=== PATIENT | male | born 1970 | race Caucasian/White ===

== ENCOUNTER 2017-03-01 12:58 | Emergency (ER) | payer OTHER ==
[~2017-03-01] VITALS: Ht 167.6 cm; Wt 75.0 kg
[~2017-03-01 12:58] MED LIST: [UNRECOGNIZED DRUG - REMARK]
[2017-03-01 13:05] VITALS: Ht 167.6 cm; Wt 75.0 kg
--- NOTE | 2017-03-01 15:18 | ERD ---
ER Documentation Chief Complaint Date/Time DATE: 03/01/17 TIME: 15:15 Chief Complaint BIB RA FOR EVAL OF ETOH. PT AMBULATORY. PT A&OX4. HPI This 47-year-old male was brought in when he was found sleeping outside and admitted to drinking alcohol. Is alert and oriented on arrival and admits to drinking beer today. Said that he did drink a large amount but has not had a drink for several hours. Denies any trauma but does state that he is hungry and thirsty. Denies any other medical problems and has no pain currently. ROS All systems reviewed and are negative except as per history of present illness. Medications Home Meds Discontinued Reported Medications [Abd Meds] No Conflict Check 03/19/11 Allergies Allergies: Coded Allergies: No Known Drug Allergies (Verified Allergy, Mild, 04/10/14) PMhx/Soc Hx Miscellaneous Medical Probl: Yes (ETOH) Hx Alcohol Use: Yes Hx Substance Use: No Hx Tobacco Use: No Smoking Status: Never smoker Physical Exam Vitals Vital Signs Date Time Temp Pulse Resp B/P Pulse Ox O2 Delivery O2 Flow Rate FiO2 03/01/17 13:05 97.8 100 18 135/70 99 Physical Exam Const: [] No distress Head: Atraumatic Eyes: Normal Conjunctiva ENT: Normal External Ears, Nose and Mouth. Neck: Full range of motion..~ No meningismus. Resp: Clear to auscultation bilaterally Cardio: Regular rate and rhythm, no murmurs Abd: Soft, non tender, non distended. Normal bowel sounds Skin: No petechiae or rashes Back: No midline or flank tenderness Ext: No cyanosis, or edema Neur: Awake and alert and oriented 3, appears somnolent, no slurred speech, cranial nerves II through XII intact, no cerebellar deficits, normal gait Psych: Normal Mood and Affect Procedures/MDM 47-year-old male with alcohol intoxication. It spent talking him at bedside abuse. He does state that he thinks he drinks too much. There are no signs of trauma the patient is alert oriented denies any trauma or pain. He was washing the emergency room for over 2 hours. He remained awake and did eat a sandwich and drank water. Wanted to make sure that he would be okay and thus encouraged him to wait for an observation. This point he is still clinically sober and states that he went to sleep in public because he was tired and had been drinking. Going to discharge him with primary care follow-up and instructions to return the emergency room if he has any concerning symptoms per Departure Diagnosis: Primary Impression: Alcoholic intoxication Condition: Stable Patient Instructions: Alcohol Intoxication, Alcohol Abuse Referrals: KIMMY FRANK (PCP) Additional Instructions: Call your primary care doctor TOMORROW for an appointment during the next 2-3 days.See the doctor sooner or return here if your condition worsens before your appointment time. DEEPALI FAGN DO March 01, 2017 15:18
[2017-03-01 16:38] VITALS: BP 103/52; PULSE 90; RESP 18; TEMP 98.6
== END 2017-03-01 16:40 | disposition home or self-care (01) ==
LOC: E/R 12:58
DX: F10.120 Alcohol abuse with intoxication, uncomplicated (principal); R40.2252 Coma scale, best verbal response, oriented, at arrival to emergency department; R40.2142 Coma scale, eyes open, spontaneous, at arrival to emergency department; R40.2362 Coma scale, best motor response, obeys commands, at arrival to emergency department
CPT/HCPCS: 99282

== ENCOUNTER 2018-06-25 09:37 | Emergency (ER) | END 2018-06-25 13:26 | disposition home or self-care (01) ==

== ENCOUNTER 2019-05-01 07:49 | Day surgery (SDC) | payer OTHER ==
[~2019-05-01] VITALS: Ht 167.6 cm; Wt 75.1 kg
[2019-05-01] VITALS (14 sets, daily range): BP systolic 102–128; BP diastolic 47–95; PULSE 50–78; RESP 12–26; Ht 167.6 cm; Wt 75.1 kg
[~2019-05-01 07:49] MED LIST changes: +ACET325T33 PO; +IBUP-1561 PO; +PROPOFOL 200 MG INJ ONE; -[UNRECOGNIZED DRUG - REMARK]
[2019-05-01] MEDS ORDERED: CEFAZOLIN 2 GM/50 ML (PMX) 50 ML IVPB SCH (10:00)
[2019-05-01] MEDS ORDERED: SOD CHLORIDE 0.9% 1,000 ML IV SCH (10:00)
--- NOTE | 2019-05-01 10:59 | PREAC ---
Date/Time of Note Date/Time of Note DATE: 05/01/19 TIME: 10:56 Anesthesia Eval and Record Evaluation Time Pre-Procedure Interview DATE: 05/01/19 TIME: 10:56 Age 49 Sex male NPO: 8 hrs Preoperative diagnosis right inguinal hernia Planned procedure open right inguinal hernia repair Past Medical History Past Medical History: Includes GI: GERD Surgery & Anesthesia Issues No known issue Meds Anticoagulation: No Beta Onesimo within 24 hr: No Reason Beta Onesimo not given: Pt. not on B-Onesimo Discontinued Scripts Acetaminophen* (Tylenol*) 325 Mg Tablet, 1 TAB PO Q6 PRN for PAIN AND OR ELEVATED TEMP, #20 TAB Prov:GERALDINE GUERRA PA-C 06/25/18 Ibuprofen* (Motrin*) 400 Mg Tab, 400 MG PO Q6H PRN for PAIN AND OR ELEVATED TEMP, #30 TAB Prov:GERALDINE GUERRA PA-C 06/25/18 Current Medications Cefazolin Sodium/ Dextrose 50 ml @ 100 mls/hr ONCE IVPB ; Start 05/01/19 at 10:00; Stop 05/01/19 at 14:00 Sodium Chloride 1,000 ml @ 75 mls/hr [id number] IV Last administered on 05/01/19at 09:19; Admin Dose 75 MLS/HR; Start 05/01/19 at 10:00 Meds reviewed: Yes Allergies Coded Allergies: No Known Drug Allergies (Verified Allergy, Mild, 06/25/18) Allergies Reviewed: Yes Labs/Studies Labs Reviewed: Reviewed by anesthesiologist Result Diagram: 05/01/19 0851 05/01/19 0851 Laboratory Tests 05/01/19 08:51 test: N/A Pre-procedure Exam Last vitals Vital Signs Date Temp Pulse Resp B/P (MAP) Pulse Ox O2 O2 Flow FiO2 Time Delivery Rate 05/01/19 99.2 78 16 111/76 97 Room Air 09:08 (88) Airway: Adequate mouth opening, Adequate thyromental dist Mallampati: Mallampati II Teeth: Normal Lung: Normal Heart: Normal ASA Physical Status ASA physical status: 1 Emergency: None Planned Anesthetic General/MAC: ETT Nerve block: TAP (right) Planned Pain Management Single shot nerve block, Parenteral pain med Pre-operative Attestations Prior to commencing anesthesia and surgery, the patient was re-evaluated, there was verification of: *The patient's identity *The results of appropriate recent lab work and preoperative vital signs *The above evaluation not changing prior to induction *Anesthetic plan, risk benefits, alternative and complications discussed with patient/family; questions answered; patient/family understands, accepts and wishes to proceed. SHABANA TRUJILLO MD May 01, 2019 10:59
[2019-05-01] MEDS ORDERED: OXYCODONE/ACETAMINOPHEN (5/325) TAB PO PRN (11:00)
[2019-05-01] MEDS ORDERED: FENTAnyl 50 MCG/ML VIAL IV PRN ×2 (11:00)
[2019-05-01] MEDS ORDERED: PROCHLORPERAZINE 10 MG INJ IV PRN (11:00)
[2019-05-01] MEDS ORDERED: ONDANSETRON 4 MG INJ IV PRN (11:00)
[2019-05-01] MEDS ORDERED: DIPHENHYDRAMINE 50 MG INJ IV PRN (11:00)
[2019-05-01] MEDS ORDERED: hydrALAzine 20 MG INJ IV PRN (11:00)
[2019-05-01] MEDS ORDERED: LABETALOL HCL 20MG INJ IV PRN (11:00)
[2019-05-01] MEDS ORDERED: MEPERIDINE 25 MG INJ IV PRN (11:00)
[2019-05-01] MEDS ORDERED: HYDROmorphONE 1 MG/5 ML IV SYRINGE IV PRN ×3 (11:00)
[2019-05-01] MEDS ORDERED: BUPIVACAINE 0.25%/EPI (SDV) 30 ML INJ ONE (11:03)
[2019-05-01] MEDS ORDERED: SUCCINYLCHOLINE CHLORIDE 100 MG/5 ML SYG IV ONE (11:13)
[2019-05-01] MEDS ORDERED: PROPOFOL 20 ML ONE (11:13)
[2019-05-01] MEDS ORDERED: LIDOCAINE 2% (SDV) 5 ML INJ ONE (11:13)
[2019-05-01] MEDS ORDERED: MIDAZOLAM 1 MG/ML 2 ML INJ ONE (11:13)
[2019-05-01] MEDS ORDERED: ROCURONIUM 50 MG INJ ONE (11:13)
[2019-05-01] MEDS ORDERED: ROPIVACAINE 0.5 % 30 ML VIAL ONE (11:14)
[2019-05-01] MEDS ORDERED: FENTAnyl 50 MCG/ML VIAL ONE (11:20)
[2019-05-01] MEDS ORDERED: ONDANSETRON 4 MG INJ ONE (11:41)
[2019-05-01] MEDS ORDERED: CEFAZOLIN 1 GM INJ ONE (11:41)
[2019-05-01] MEDS ORDERED: DEXAMETHASONE 4 MG/ML 5 ML INJ ONE (11:41)
[2019-05-01] MEDS ORDERED: LABETALOL HCL 20MG INJ ONE (11:56)
[2019-05-01] MEDS ORDERED: SUGAMMADEX SODIUM 200 MG/2 ML VIAL IV ONE (12:14)
[2019-05-01] MEDS ORDERED: KETOROLAC 30 MG INJ ONE (12:15)
--- NOTE | 2019-05-01 12:24 | OPR ---
Date/Time of Note Date/Time of Note DATE: 05/01/19 TIME: 12:22 Operative Report Procedure Date: May 01, 2019 Preoperative Diagnosis incarcerated right inguinal hernia Postoperative Diagnosis same Operation/Procedure Performed open right incarcerated inguinal hernia repair with large ultrapro hernia plus system mesh Surgeon see signature line Ripper Operator none Anesthesia Type: general Estimated Blood Loss: 0 - 10 ml's Transfusion none Specimen none Grafts/Implants none Complications none Pt Condition Post Procedure: stable Indications This is a 49-year-old male with symptomatic incarcerated right inguinal hernia. He request surgical repair. Risks alternatives benefits and personal were discussed the patient. Patient expresses understanding and consents to the operation. Procedure Description Patient is taken to the OR and prepped and draped in usual sterile fashion. Surgical timeout was performed. IV antibiotics given. Right inguinal oblique incision was made with a 10 blade. Dissection with cautery was carried down to the external oblique fascia. The extremity fascia was opened with the 15 blade. This incision was extended medial inferiorly and lateral superiorly. Cord structures identified encircled with a Crystal drain. Large indirect incarcerated hernia was identified. Extensive lysis of adhesions performed in this hernia was then manually reduced. This hernia defect was then bolstered with the disc portion of the ultra pro hernia system mesh. The disc is secured with a running 0 Prolene from the pubic tubercle along the shelving edge of the inguinal ligament. Superiorly the disc is secured to the internal oblique with interrupted 3-0 Vicryl. Onlay mesh was secured in a similar fashion with a running 0 Prolene from the pubic tubercle along the shelving is a single limit. Straps are created reapproximate around the cord structures with interrupted 0 Prolene. Onlay mesh is secured to enter oblique with interrupted 3-0 Vicryl. Externally fascia was closed with running 3-0 Vicryl. Nicole's fascia was clos ed with interrupted 3-0 Vicryl. Skin is closed using inzorb observable skin stapler. A tap block was provided by the anesthesiology to begin the case. Dry dressings were applied. Jennifer LUCAS May 01, 2019 12:24
[2019-05-01] MEDS ORDERED: HYDROCODONE/APAP (5/325) TAB PO ONE (12:30)
[2019-05-01] MEDS: FENTAnyl 50 MCG/ML VIAL IV PRN ×2 (12:41→13:00)
--- NOTE | 2019-05-01 13:08 | PAC ---
Date/Time of Note Date/Time of Note DATE: 05/01/19 TIME: 13:07 Post-Anesthesia Notes Post-Anesthesia Note Last documented vital signs Vital Signs Date Temp Pulse Resp B/P (MAP) Pulse Ox O2 O2 Flow FiO2 Time Delivery Rate 05/01/19 60 24 125/88 99 12:52 (100) 05/01/19 98.3 12:36 05/01/19 12:36 Activity: WNL Respiratory function: WNL Cardiovascular function: WNL Mental status: Baseline Pain reasonably controlled: Yes Hydration appropriate: Yes Nausea/Vomiting absent: Yes SHABANA TRUJILLO MD May 01, 2019 13:08
== END 2019-05-01 15:03 | disposition home or self-care (01) ==
LOC: SDS 07:49
PROVIDERS: ATTEND Surgery
DX: K40.30 Unilateral inguinal hernia, with obstruction, without gangrene, not specified as recurrent (principal)
CPT/HCPCS: 49507; 80053; 85025; 85610; 85730; C1781; J0690; J1100; J1885; J2250; J2405; J2795; J3010; Z7512; Z7610